=== PATIENT | male | born 1970 | race Caucasian/White ===

== ENCOUNTER 2019-02-21 20:49 | Emergency (ER) | payer MEDICAID, OTHER ==
[~2019-02-21] VITALS: Ht 170.2 cm; Wt 101.7 kg
[2019-02-21 20:52] VITALS: Ht 170.2 cm; Wt 101.7 kg
[2019-02-21 23:00] VITALS: BP 140/92; PULSE 71; RESP 18
[2019-02-21] MEDS ORDERED: ONDANSETRON 4 MG INJ IV STA (23:21)
[2019-02-21] MEDS ORDERED: SOD CHLORIDE 0.9% 500 ML IV STA (23:21)
[2019-02-21] MEDS ORDERED: morphine 4 MG/ML VIAL IV STA (23:21)
--- NOTE | 2019-02-22 01:14 | ERD ---
ER Documentation Chief Complaint Chief Complaint AP, RADIATING TO BACK WITH VOMIT AND DIARRHEA X'S 3 DAYS HPI Is a 48-year-old male with abdominal pain rating to his back with vomiting diarrhea for the past 3 days. Pain is mild to moderate intensity no exacerbating factors. Denies any fever chills. Mild nausea. 2 episodes of vo miting nonbilious. No other current complaints. ROS All systems reviewed and are negative except as per history of present illness. Allergies Allergies: Coded Allergies: No Known Allergy (Unverified , 02/21/19) PMhx/Soc Medical and Surgical Hx: pt denies Medical Hx, pt denies Surgical Hx History of Surgery: No Anesthesia Reaction: No Hx Neurological Disorder: No Hx Respiratory Disorders: No Hx Cardiac Disorders: No Hx Psychiatric Problems: No Hx Miscellaneous Medical Probl: No Hx Alcohol Use: Yes (QUIT IN 2012) Hx Substance Use: No Hx Tobacco Use: No Smoking Status: Never smoker Physical Exam Vitals Vital Signs Date Temp Pulse Resp B/P (MAP) Pulse Ox O2 O2 Flow FiO2 Time Delivery Rate 02/21/19 98.1 71 18 140/92 97 Room Air 23:00 (108) 02/21/19 98.6 70 18 131/78 95 20:52 (95) Physical Exam Const: No acute distress Head: Atraumatic Eyes: Normal Conjunctiva ENT: Normal External Ears, Nose and Mouth. Neck: Full range of motion. No meningismus. Resp: Clear to auscultation bilaterally Cardio: Regular rate and rhythm, no murmurs Abd: Soft, non tender, non distended. Normal bowel sounds Skin: No petechiae or rashes Back: No midline or flank tenderness Ext: No cyanosis, or edema Neur: Awake and alert Psych: Normal Mood and Affect Result Diagram: 02/21/19 2334 02/21/19 2334 Results 24 hrs Laboratory Tests Test 02/21/19 23:34 White Blood Count 7.1 10^3/ul Red Blood Count 4.55 10^6/ul Hemoglobin 14.2 g/dl Hematocrit 42.1 % Mean Corpuscular Volume 92.5 fl Mean Corpuscular Hemoglobin 31.2 pg Mean Corpuscular Hemoglobin Concent 33.7 g/dl Red Cell Distribution Width 12.4 % Platelet Count 257 10^3/UL Mean Platelet Volume 9.0 fl Immature Granulocytes % 0.300 % Neutrophils % 47.3 % Lymphocytes % 37.9 % Monocytes % 11.1 % Eosinophils % 3.0 % Basophils % 0.4 % Nucleated Red Blood Cells % 0.0 /100WBC Immature Granulocytes # 0.020 10^3/ul Neutrophils # 3.3 10^3/ul Lymphocytes # 2.7 10^3/ul Monocytes # 0.8 10^3/ul Eosinophils # 0.2 10^3/ul Basophils # 0.0 10^3/ul Nucleated Red Blood Cells # 0.0 10^3/ul Prothrombin Time 12.4 Sec Prothrombin Time Ratio 1.0 INR International Normalized Ratio 0.91 Activated Partial Thromboplast Time 31.6 Sec Urine Color LUIS MANUEL Urine Clarity CLEAR Urine pH 6.0 Urine Specific [place] 1.029 Urine Ketones NEGATIVE mg/dL Urine Nitrite NEGATIVE mg/dL Urine Bilirubin NEGATIVE mg/dL Urine Urobilinogen 2+ mg/dL Urine Leukocyte Esterase NEGATIVE Melva/ul Urine Microscopic RBC 7 /HPF Urine Microscopic WBC 0 /HPF Urine Mucus FEW /HPF Urine Hemoglobin 1+ mg/dL Urine Glucose NEGATIVE mg/dL Urine Total Protein NEGATIVE mg/dl Sodium Level 137 mmol/L Potassium Level 3.8 mmol/L Chloride Level 103 mmol/L Carbon Dioxide Level 28 mmol/L Anion Gap 6 Blood Urea Nitrogen 18 mg/dl Creatinine 0.96 mg/dl Est Glomerular Filtrat Rate mL/min > 60 mL/min Glucose Level 107 mg/dl Calcium Level 8.9 mg/dl Total Bilirubin 0.4 mg/dl Direct Bilirubin 0.00 mg/dl Indirect Bilirubin 0.4 mg/dl Aspartate Amino Transf (AST/SGOT) 53 IU/L Alanine Aminotransferase (ALT/SGPT) 53 IU/L Alkaline Phosphatase 62 IU/L Total Protein 7.0 g/dl Albumin 3.9 g/dl Globulin 3.10 g/dl Albumin/Globulin Ratio 1.25 Lipase 73 U/L Current Medications Medications Dose Sig/Tom Start Time Status Last (Trade) Ordered Route PRN Stop Time Admin Dose Reason Admin Sodium 500 ml @ Q1H STAT 02/21/19 DC 02/21/19 Chloride 500 mls/hr IV 23:21 23:42 02/22/19 00:20 Morphine 4 mg ONCE STAT 02/21/19 DC 02/21/19 Sulfate IV 23:21 23:42 (morphine) 02/21/19 23:23 Ondansetron 4 mg ONCE STAT 02/21/19 DC 02/21/19 HCl (Zofran IV 23:21 23:41 Inj) 02/21/19 23:23 Procedures/MDM Medical decision makin-year-old male evidence of cholelithiasis. No evidence of cholecystitis. Pain is resolved. Is stable for trial of outpatient management patient's gastrointestinal symptoms have stabilized while in the department. No evidence of severe dehydration, sepsis, or surgical abdomen. Extensive discussion with family and patient that occult disease cannot be ruled out. 8 hour recheck for repeat abdominal exam is planned. Departure Diagnosis: Primary Impression: Cholelithiasis Cholelithiasis location: gallbladder Cholecystitis presence: without cholecystitis Biliary obstruction: without biliary obstruction Qualified Codes: K80.20 - Calculus of gallbladder without cholecystitis without obstruction Condition: Stable NORBERT COLVIN Feb 22, 2019 01:14
[2019-02-22] MEDS ORDERED: TRAM50TA2 PO (01:15)
[2019-02-22] MEDS ORDERED: ONDA4TAB14 PO (01:15)
== END 2019-02-22 01:48 | disposition home or self-care (01) ==
LOC: E/R 20:49
DX: K80.20 Calculus of gallbladder without cholecystitis without obstruction (principal)
CPT/HCPCS: 36415; 74176; 80053; 81001; 83690; 85025; 85610; 85730; 96374; 96375; J2270; J2405; J7040; Z7502